=== PATIENT | male | born 1995 | race Caucasian/White ===

== ENCOUNTER 2019-01-27 08:42 | Emergency (ER) | payer OTHER ==
[2019-01-27 08:54] VITALS: BP 135/80
--- NOTE | 2019-01-27 09:14 | EDPHY ---
H & P Time Seen by Provider: 01/27/19 09:10 HPI/ROS: CHIEF COMPLAINT: Left shoulder pain HISTORY OF PRESENT ILLNESS: 24-year-old male with history of shoulder dislocation presents reporting that he believes he dislocated his shoulder yesterday. Patient was leaning into a car to grab something from the back seat and when he pushed himself back using his left arm his shoulder dislocated. He reports that a friend was able to help him relocate the shoulder. Took some ibuprofen last night. Continues to have pain across the anterior shoulder along the anterior deltoid muscle. No numbness or tingling in the arm. No numbness or tingling in the fingers. REVIEW OF SYSTEMS: A comprehensive 10 system review of systems was reviewed and is otherwise negative aside from elements mentioned in the history of present illness and medical decision making. PAST MEDICAL HISTORY: Known history of shoulder dislocation SOCIAL HISTORY: Smoker. VITAL SIGNS Reviewed by me. GENERAL: Well-developed, well-nourished, pleasant gentleman resting comfortably. EXTREMITIES: Focused exam of the left shoulder: No obvious deformity. No tenderness over the clavicle or AC joint. Mild tenderness along the anterior aspect of the deltoid . Able to internally and externally rotate at the shoulder. Flexion and extension at the shoulder are normal but cause discomfort. Sensation intact over the deltoid. Normal motor strength, median, ulnar, radial in the hand. Smoking Status: Current some day smoker Constitutional: Initial Vital Signs Temperature (C) 36.9 C 01/27/19 08:48 Heart Rate 76 01/27/19 08:48 Respiratory Rate 14 01/27/19 08:48 Blood Pressure 135/80 H 01/27/19 08:48 O2 Sat (%) 96 01/27/19 08:48 Allergies/Adverse Reactions: No Known Allergies Allergy (Unverified 03/27/13 15:21) Home Medications: Medication Instructions Recorded Miscellaneous Medical Supply [NO 03/27/13 HOME MEDS] Medical Decision Making ED Course/Re-evaluation: 24-year-old male presents following a shoulder dislocation which was reduced yesterday. X-rays demonstrate no acute bony abnormalities. Provided with a sling, instructions regarding ice, ibuprofen, and follow up with Orthopedic surgery. Departure - Departure Disposition: Home, Routine, Self-Care Clinical Impression: Left anterior shoulder pain, History of dislocation of shoulder Condition: Good Instructions: Shoulder Dislocation (ED) Additional Instructions: Mainstay of therapy is rest, ice, immobilization, and nonsteroidal anti- inflammatories for pain and to decrease swelling. Apply ice for 20-30 minutes every 2-3 hours for the next 48 hours. I recommend Ibuprofen (Motrin, Advil) or Naproxen Sodium (Aleve) for pain and anti-inflammatory effects. You may take either one, but do not take both. Your dose is: Ibuprofen 600 mg every 6-8 hours with food. OR Naproxen Sodium (Aleve) 220 mg every 12 hours. Please wear the shoulder sling as much as possible until your re-evaluated. You can begin simple shoulder exercises such as pendulum swings starting tomorrow. Followup with the orthopedic surgeon, Dr. Heredia, within the next 5-7 days. Referrals: Taiwo Heredia MD [Medical Doctor] - As per Instructions
== END 2019-01-27 09:27 | disposition home or self-care (01) ==
LOC: CED 08:42
DX: M25.512 Pain in left shoulder (principal)
CPT/HCPCS: 73030-PO; 99283-ER; A4565-ER